=== PATIENT | female | born 1960 | race Caucasian/White ===

== ENCOUNTER 2024-08-04 00:49 | Day surgery (SDC) | payer OTHER, SELFPAY ==
[2024-08-01 14:14] VITALS: BMI 25.8
[2024-08-04] VITALS (19 sets, daily range): BP systolic 97–116; BP diastolic 52–80; PULSE 61–78; RESP 12–20; TEMP 37.1; O2SAT 93–100; BMI 26.2
[2024-08-04 09:06] LABS: Anion Gap 11 mmol/L (4-12); Blood Urea Nitrogen 11 mg/dL (7-17); Calcium 9.5 mg/dL (8.4-10.2); Carbon Dioxide 30 mmol/L (22-30); Chloride 101 mmol/L (98-107); Estimated CRCL calculation 62 ml/min; Estimated Glomerular Filt Rate > 60; Glucose 91 mg/dL (65-110); Potassium 3.8 mmol/L (3.4-5.0); Sodium 142 mmol/L (137-145)
[2024-08-04 09:29] LABS: Basophils Percent Auto 0.3 % (0.2-1.2); Eosinophils Absolute Auto 0.3 K/mm3 (0-0.3); Eosinophils Percent Auto 4.3 % (0-4.4); Hematocrit 41.5 % (37.0-47.0); Hemoglobin 13.5 g/dL (12.0-15.0); Immature Granulocyte Absolute 0.02 K/mm3 (0.00-0.031); Immature Granulocyte Percent A 0.3 % (0-0.5); Lymphocytes Percent Auto 33.5 % (18.3-44.2); Mean Corpuscular HGB Conc 32.5 g/dl (32-36); Mean Corpuscular Hemoglobin 31.8 pg (26-34); Mean Corpuscular Volume 97.6 fl (80-100); Mean Platelet Volume 9.2 fl (7.4-10.4); Monocytes Absolute Auto 0.8 K/mm3 (0.1-0.6); Monocytes Percent Auto 12.3 % (2.6-8.5); Neutrophils Absolute Auto 3.2 K/mm3 (1.3-6.7); Neutrophils Percent Auto 49.3 % (45.5-73.1); Platelet Count Result 250 k/mm3 (150-375); Red Blood Count 4.25 M/mm3 (4.2-5.4); White Blood Count 6.6 K/mm3 (4.5-10.0)
--- NOTE | 2024-08-04 11:26 | WPDHPUPDATE1 ---
History and Physical Update Update Date/Time: 08/04/24 10:06 History and Physical has been reviewed, including an updated exam of the patient. There are NO changes in the patient's condition. Risks, benefits, and alternatives have been discussed and questions answered. Patient agrees to proceed with procedure.
--- NOTE | 2024-08-04 11:27 | P.SEDATION_ITS ---
Moderate Sedation Note-Pt Data Patient Data Allergies Allergy/AdvReac Type Severity Reaction Status Date / Time cefuroxime Allergy Unknown Rash Verified 08/04/24 08:39 codeine Allergy Unknown Unknown Verified 08/04/24 08:39 naproxen Allergy Unknown Unknown Verified 08/04/24 08:39 sulfamethoxazole AdvReac Unknown Dizziness Verified 08/04/24 08:39 [From Sulfamethoxazole-Trimethoprim] Home Medications Medication Instructions Recorded Confirmed Type aspirin 81 mg tablet 81 mg PO DAILY 08/01/24 08/04/24 History atorvastatin 20 mg tablet 20 mg PO DAILY 08/01/24 08/04/24 History cetirizine 10 mg chewable tablet 10 mg PO DAILY 08/01/24 08/04/24 History gabapentin 300 mg capsule 300 mg PO BID 08/01/24 08/04/24 History lisinopril 10 1 tablet PO DAILY 08/01/24 08/04/24 History mg-hydrochlorothiazide 12.5 mg tablet magnesium oxide 200 mg PO DAILY 08/01/24 08/04/24 History [id number]-Td-jdav-minerals (One 1 tablet PO DAILY 08/01/24 08/04/24 History Daily Calcium/Iron tablet) Current Medications: Active Medications Sodium Chloride (Normal Saline Iv) 1,000 mls @ 125 mls/hr IV CONT .Q8H ONE Stop: 08/04/24 19:25 Sedation/Anesthesia: No previous sedation/anesthesia problems (including family history). [facility] Family History Family History (Updated 05/28/14 @ 07:13 by DOCTOR UNKNOWN) Father Family history of premature coronary heart disease Social History Social History Smoking status: Never smoker Second hand tobacco smoke exposure: No Alcohol intake: current Drinks per week: 1 Substance use: never Substance use type: does not use Living arrangements: alone Spiritual care concerns: No Mod Sed Physical Exam Physical Exam Pre Procedural Exam: Normal: Appearance and Heart Rate Hours since solid foods: 12 Hours since liquid intake: 12 Mallampati Classification: class II Internal Medicine - PN: Obj Da Vital Signs Vital Signs: Vital Signs - 24 hr 08/04/24 09:15 Temperature 37.1 C Pulse Rate 61 Respiratory Rate 18 Blood Pressure 105/80 Pulse Oximetry 99 Oxygen Delivery Room Air Meds/Results Medications: Active Medications Generic Name Dose Route Start Last Admin Trade Name Freq PRN Reason Stop Dose Admin Sodium Chloride 1,000 mls @ 125 mls/hr 08/04/24 11:26 Normal Saline Iv IV CONT 08/04/24 19:25 .Q8H ONE Labs 08/04/24 08:43 08/04/24 08:43 Labs: Laboratory Results - last 24 hr 08/04/24 08:43 WBC 6.6 RBC 4.25 Hgb 13.5 Hct 41.5 MCV 97.6 MCH 31.8 MCHC 32.5 RDW 13.0 Plt Count 250 MPV 9.2 Immature Gran % (Auto) 0.3 Neut % (Auto) 49.3 Lymph % (Auto) 33.5 [place] % (Auto) 12.3 H Eos % (Auto) 4.3 Baso % (Auto) 0.3 Lymph # (Auto) 2.20 [place] # (Auto) 0.8 H Eos # (Auto) 0.3 Baso # (Auto) 0.0 Abs Immat Gran (auto) 0.02 Absolute Neuts (auto) 3.2 Absolute Nucleated RBC 0.000 Nucleated RBC % 0.0 Sodium 142 Potassium 3.8 Chloride 101 Carbon Dioxide 30 Anion Gap 11 BUN 11 Creatinine 0.70 Estim Creat Clear Calc 62 Estimated GFR > 60 Glucose 91 Calcium 9.5 ASA Classification/Sedation ASA Classification/Sedation ASA Class: III Emergent: No Risks: Risks, benefits and alternatives explained and patient/family accepted plan for sedation. Patient re-evaluated immediately prior to sedation.
--- NOTE | 2024-08-04 11:27 | P.PCNCC_ITS ---
Cardiac Cath Procedure Note Date of procedure:: 08/04/24 Performing physician:: CATHETERIZATION LABORATORY REPORT Procedure Date: 08/04/2024 Referring Physician: Dr. Hill Anesthesia: Versed and Fentanyl were ordered and given in my presence at 1026, procedure ended at 1122. Supervision of nurse, Ralph Pereira monitored moderate sedation with 2mg Versed and 150mcg Fentanyl was provided for 56 minutes. Pre-op Diagnosis: CCS II Angina Post-op Diagnosis: CCS II Angina Procedure(s): Left heart catheterization with coronary angiography Access Site: Right radial artery Brief History and Clinical Indications: 63-year-old woman who has been developing exertional symptoms along with chest discomfort found to have at least moderate CAD in the LAD presents to define her coronary anatomy. All risks, benefits and alternatives to left heart catheterization with or without percutaneous coronary intervention was discussed at length with the patient. Risk of complications including but not limited to bleeding, infection, arrhythmia, stroke, worsening kidney function, blood loss, groin hematoma, limb loss, emergency coronary artery bypass grafting, and even were discussed with the patient and all questions were answered. The patient understood and wished to proceed. Time out called, patient name, date of , medical record number, allergies, procedure performed, identify Supply Chain Development Manager, patient and staff member concurred with accurate data, procedure carried on. Findings: LEFT HEART CATHETERIZATION FINDINGS: 1. Left main: The left main coronary artery is very short and widely patent without any significant obstructive disease. 2. Left anterior descending: The LAD gives also 5 diagonal branches. The 1st diagonal branch is a small-caliber vessel with no obstructive angiographic disease. The remaining diagonals are very small supply minimal territory. The LAD in its proximal to mid body has 20-30% calcific disease. 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 3. Left circumflex: The left circumflex artery has mild luminal irregularities without any significant obstructive angiographic disease. The left circumflex gives off 3 OM branches. OM1 in its mid body has a bifurcation lesion that is 70% stenotic. OM2 and OM3 have mild luminal irregularities without any significant obstructive angiographic disease. 4. Right coronary artery: The RCA has mild luminal irregularities without any significant obstructive angiographic disease. The RCA is the dominant vessel. 5. Left ventricle: A. End-diastolic pressure 35 mmHg. B. LV gram deferred. C. No significant gradient across aortic valve on catheter pullback. 6. Opening AO pressure 116/69 and closing AO pressure 130/79 Description of Procedure: Informed consent signed and placed in the chart. Patient transferred to cardiac catheterization technologist room. Prepped and draped in usual sterile fashion. 2% lidocaine injected subcutaneously in right wrist area. 22-gauge venipuncture catheter used to access the right radial artery with the Seldinger technique. 6-FR slender sheath placed in right radial artery. Nitroglycerin 200mcg, Verapamil 2.5mg, and Heparin 5000U was given intraarterial through the sheath. J wire advanced under fluoroscopy 5F TIG diagnostic catheter engaged Left Main Coronary Artery. 5F TIG diagnostic catheter engaged Right Coronary Artery Multiple orthogonal angiogram obtained and reviewed 5F pigtail diagnostic catheter crossed aortic valve to obtain LVEDP, LV angiogram deferred. At this time, the films were reviewed in its entirety and decision was made to further interrogate the OM1 bifurcation lesion. A CLS 3.0 guide catheter was used to intubate the short left main coronary artery. The 014 OmniWire took course of the LAD and was left in place. A 2nd 014 run-through hyper coat wire was traversed into OM1 branch. At this point the OmniWire was withdrawn into the left main coronary artery and redirected into the left circumflex. The pressure sensor was positioned in the left main coronary artery where the system was normalize. After normalization, the OmniWire was negotiated into larger OM1 branch. IFR was measured at 0.92 and the wire was slowly withdrawn and no drift was noted. Final angiography was performed and no immediate complications were noted. Hemostasis was achieved by application of TR band. Assessment: CCS Class II Angina CAD Post Operative Condition: Stable No significant blood loss Disposition: Home Plan: Medical therapy for her angina, CAD, and myocardial bridging. Should patient have physically limiting symptoms despite optimal medical therapy, can return to cardiac catheterization technologist for PCI of OM1 branch. Silvano Presley Interventional Cardiology
== END 2024-08-04 17:20 | disposition home or self-care (01) ==
PROVIDERS: PCP Internal Medicine; Visit Provider Internal Medicine
PROC: 4A023N7 Measurement of Cardiac Sampling and Pressure, Left Heart, Percutaneous Approach (ICD-10-PCS; CPT 93452; principal; 2024-08-04 10:00)
PROC: 4A033BC Measurement of Arterial Pressure, Coronary, Percutaneous Approach (ICD-10-PCS; CPT 93571; 2024-08-04 10:00)
DX: I25.119 Atherosclerotic heart disease of native coronary artery with unspecified angina pectoris (principal); Q24.5 Malformation of coronary vessels; R55 Syncope and collapse; I10 Essential (primary) hypertension; E78.5 Hyperlipidemia, unspecified; Z79.82 Long term (current) use of aspirin; Z87.891 Personal history of nicotine dependence; Z85.118 Personal history of other malignant neoplasm of bronchus and lung; Z80.9 Family history of malignant neoplasm, unspecified; Z82.49 Family history of ischemic heart disease and other diseases of the circulatory system
CPT/HCPCS: 36415; 80048; 85025; 93458; 93571; C1769; C1887; C1894; J1644; J2003; J2250; J2305; J3010; J7040

== ENCOUNTER 2025-04-08 00:47 | Day surgery (SDC) | payer OTHER, SELFPAY ==
[2025-04-07 13:21] VITALS: BMI 26.6
--- OUTSIDE RECORDS SUMMARY | 2025-04-08 00:50 | XMS_ITS | Clinical Summary ---
Author Organization [facility] Address [address] [place] [address] Care Team Providers Care Medical Clerk Name Role Phone Iwona Auguste MD Unavailable Kash Wiseman MD Unavailable Shonda Cuenca PhD Unavailable [phone] Bonnie Syed NP Unavailable Derrek Otto MD Unavailable Ron Toledo MD Primary Care Provider [phone] Allergies Active Allergy Reactions Criticality Noted Date Comments Cefuroxime Rash Medium 07/29/2021 Codeine Hives Medium 06/27/2018 Sulfamethoxazole-Trimethoprim Dizziness,Stomach upset Low 04/27/2020 Medications gabapentin (NEURONTIN) 300 mg capsule Take 1 capsule (300 mg total) by mouth 2 (two) times a day 10/08/2019 Active lisinopril-hydr oCHLOROthiazide (ZESTORETIC) 10-12.5 mg per tablet Take 1 tablet by mouth daily 05/04/2022 Active magnesium oxide 200 mg magnesium tablet,chewable 01/29/2023 Act abebe multivitamin-Ca -iron-minerals tablet 01/29/2023 Active cetirizine (ZyrTEC) 10 mg chewable tablet Take 1 tablet (10 mg total) by mouth daily Active aspirin 81 mg enteric coated tabletIndicatio ns:prevention of thrombosis Take 1 tablet (81 mg total) by mouth daily 06/24/2024 5 Active L. acidophilus/Bif id. animalis 32 billion cell capsule Take 1 capsule by mouth daily Active FIBER CHOICE, INULIN, ORAL Take 1 tablet by mouth daily Active rosuvastatin (CRESTOR) 20 mg tabletIndicatio ns:Hyperlipidem ia LDL goal <70,Coronary artery disease involving [place] coronary artery of [place] heart without angina pectoris Take 1 tablet (20 mg total) by mouth daily 90 tablet 3 09/02/2024 5 Active vitamin B complex capsule Take 1 capsule by mouth 2 (two) times a day Active Active Problems Patient Care Coordination No te Formatting of this note migh t be different from the original. 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 She initially presented with dizziness, an unsteady gait, and left leg numbness last June. She underwent a CT of the head on 06/27/18 that showed multiple brain lesions with the largest measuring 1.9 cm in the right cerebellar hemisphere. She had a CT of the chest, abdomen and pelvis that showed a 2 x 1.3 cm right upper lobe nodule with associated 0.6 cm satellite nodule, left lung nodules measuring up to 3 mm and multiple nodules in the left breast with the largest measuring 1 cm, with a negative follow up mammogram. She underwent a brain MRI on 06/27/18 that demonstrated a 2.3 x 2.3 cm lesion in the right cerebellar hemisphere and a 2.4 x 1.9 cm right parietal lesion. She underwent a resection of the cerebellar lesion on 06/28/18 and the pathology showed metastatic carcinoma. She underwent a biopsy of the right upper lobe lesion on 07/30/18 that demonstrated adenocarcinoma consistent with a lung primary. She had gamma knife to her other brain lesion on 07/31/18. She had a PET on 08/01/18 that showed increased uptake in the 2.3 x 1.7 cm right upper lobe nodule and a large ipsilateral pneumothorax. This was treated with a chest tube. She has completed 5 cycles of pembrolizumab. She underwent a restaging CT of the chest and abdomen on 11/25/18 that showed interval improvement of the right upper lobe nodule with no evidence of metastatic disease in the abdomen. The right upper lobe nodule now measures 1.4 x 1 cm, previously 1.5 x 2.2 cm. She is here for further surgical evaluation. Problem Noted Date Diagnosed Date Status post placement of implantable loop record er 03/16/2025 Overview (03/16/2025): Medtronic LINQ Loop Recorder. Dx; Recurrent Syncope. DOI 04/08/2025-Jose. Eldalink remote. Recurrent syncope 03/13/2025 Hypersomnolence 03/13/2025 Coronary artery disease invo lving [place] coronary artery of [place] heart without angina pectoris 06/24/2024 Atypical chest pain 06/24/2024 Nuclear sclerosis of both eyes 06/19/2024 Assessment & Plan (06/19/2024 3:13 PM CDT): Minimal changes noted, NVS. Monitor Dry eye syndrome of both eyes 06/19/2024 Assessment & Plan (06/19/2024 3:13 PM CDT): ATs PRN PVD (posterior vitreous detachment), left 2022 Assessment & Plan (06/19/2024 3:11 PM CDT): Stable, no retinal holes/tears/detachments. RTC STAT w any vision changes Assessment & Plan (06/21/2023 1:26 PM CDT): Educated on stable findings and symptoms which should typically improve with time. Reassuringly, no retinal holes/tears/detachments noted in either eye. Educated pt to call/RTC STAT with any new flashes, many floaters, or curtain over vision. Pt expressed understanding. Monitor. Presbyopia 06/21/2023 Assessment & Plan (06/19/2024 3:12 PM CDT): Monitor, update specs at next visit. Assessment & Plan (06/21/2023 1:27 PM CDT): Recommended updating specs for FT wear. Vision changes 05/17/2023 Assessment & Plan (05/17/2023 3:53 PM CDT): She was diagnosed with posterior vitreous detachment roughly 2 months ago, here for a 2nd opinion regarding these findings. Fortunately there is no evidence for retinal tear detachment retina today, nor is there any evidence for malignancy in the eye. Recommend evaluation with our Optometry service for continued care. She has a history of metastatic pulmonary adenocarcinoma diagnosed in 2018 with metastasis to the brain now status post resection of a cerebellar lesion along with immunotherapy and gamma knife radiation. She began noticing blurry vision along with new floaters in her left eye 2 months prior. She has also noticed a temporal crescent in her vision in the left eye in certain lighting conditions (usually in a dark room). She has also noticed aching near her left eye. Ok to use PFAT prn Altogether her eye exam today is reassuring with some mild nonspecific pigmentary changes. For now we discussed it would be okay to continue with annual eye exams. Constipation 03/30/2023 Syncope and collapse 05/26/2022 Primary hypertension 03/22/2022 History of lung cancer 07/05/2021 Vitamin D deficiency 01/24/2021 Primary Adenocarcinoma of right upper lobe of luanne ng 08/07/2018 Cancer Staging:Clinical stage from 06/17/2018:Stage IV(pM1c) - Signed by Octavia Milligan NP on 01/15/2019 Overview (12/10/2018): Stage IV with more than one brain met. Treated with resection and pembro. Now considered for resection. Brain metastases 07/16/2018 Assessment & Plan (08/03/2018 8:39 AM CDT): Dx Sept '18 on path from cerebellar lesion. Now follows with Dr. Boyd. CT-guided Bx RUL lung 07/30 with path adenoCA, likely pulmonary primary. PET with R parietal met and RUL nodule. S/p GK to R parietal met. - patient transferring care to Dr. Wiseman as she has likely lung adenocarcinoma primary Epigastric pressure 05/21/2018 Calculus of gallbladder 04/23/2018 Dyslipidemia 04/23/2018 Abdominal pain, RUQ 12/24/2017 Cervicalgia 12/08/2016 Actinic keratosis 08/24/2015 Hyperlipidemia LDL goal <70 08/24/2015 ADHD, adult residual type 08/23/2015 Depression 06/04/2014 Fatigue 06/04/2014 Optic cupping, bilateral Overview (06/19/2024): C/D ratio OU (0.4) Assessment & Plan (06/19/2024 3:12 PM CDT): Moderate and deep cup right eye (OD) and left eye (OS), with intraocular pressure (IOP) that is normotensive. OCT optic nerve (ON) at follow up, monitor Resolved Problems Problem Noted Date Diagnosed Date Resolved Date Malignant neoplasm of upper lobe of right lung (CMS/HCC) 12/18/2018 01/19/2022 Overview (12/18/2018): Added automatically from request for surgery [id number] Pneumothorax, post biopsy, right 08/02/2018 01/19/2022 Assessment & Plan (08/03/2018 11:45 AM CDT): No PTX on CXR and no air leak. Chest tube clamped and CXR ordered for 1PM. Dr. Rodríguez will follow up and if no recurrence of PTX he will d/c chest tube. 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 Minimal Sx. S/p chest tube placement 16 Fr in ED. - IP following - chest tube pulled 08/03, no recurrent PTX on repeat CXR Pneumothorax, post biopsy, right 08/02/2018 01/19/2022 Overview (05/06/2019): Overview: Last Assessment & Plan: No PTX on CXR and no air leak. Chest tube clamped and CXR ordered for 1PM. Dr. Rodríguez will follow up and if no recurrence of PTX he will d/c chest tube. Secondary malignant neoplasm of brain (CMS/HCC) 07/16/2018 01/19/2022 Overview (05/06/2019): Overview: Last Assessment & Plan: Dx Jun18 on path from cerebellar lesion. Now follows with Dr. Boyd. CT-guided Bx RUL lung 07/30 with path adenoCA, likely pulmonary primary. PET with R parietal met and RUL nodule. S/p GK to R parietal met. - patient transferring care to Dr. Wiseman as she has likely lung adenocarcinoma primary Metastatic neoplastic disease 07/05/2018 01/19/2022 Pain in shoulder 12/08/2016 08/02/2018 Encounters Date Type Department Care Team Description 04/07/2025 9:08 AM CDT Hospital Encounter [facility] ([facility] [address] [place] [id number] Abnormal mammogram of left breast 03/27/2025 Results Follow-Up [facility] [address] [place] [phone] Armando Hill MD Portable/Home Sleep Study 03/27/2025 Telephone [facility] [address] [place] [phone] Armando Hill MD 03/25/2025 4:00 PM CDT - 03/25/2025 11:59 PM CDT Hospital Encounter [facility] [address] [place] [address] Hypersomnolence Discharge Disposition: Discharge to home or self care 03/16/2025 Orders Only [facility] [address] [facility] [address] [place] [phone] Armando Hill MD Recurrent syncope (Primary Dx); Implantable loop recorder present 03/13/2025 11:18 AM CDT - 03/13/2025 11:59 PM CDT Hospital Encounter [facility] ([facility]) [address] [place] [phone] Screening mammogram, encounter for Discharge Disposition: Discharge to home or self care 03/13/2025 8:15 AM CDT Office Visit [facility] at [address] [place] [address] Armando Hill MD Recurrent syncope (Primary Dx); Coronary artery disease involving [place] coronary artery of [place] heart without angina pectoris; Hyperlipidemia LDL goal <70; Primary hypertension; Hypersomnolence; Nonrheumatic tricuspid valve regurgitation 03/13/2025 Telephone [facility] [address] [place] [address] Armando Hill MD from Last 3 Months Immunizations Immunization Administration Dates Next Due Influenza, Quadrivalent, Spl it, Preservative Free, Intramuscular 07/05/2021 Pfizer SARS-CoV-2 Monovalent Vaccination (12+ Yrs) PURPLE 11/29/2020 Tdap 12/20/2022 ZOSTER Recombinant 10/26/2023,01/19/2023 Surgical History Surgery Date Site/Laterality Comments CHOLECYSTECTOMY HYSTERECTOMY 10/01/1991 - 09/30/1992 BRAIN SURGERY 06/01/2018 - 06/30/2018 gross total resection of the right cerebellar tumor CHOLECYSTECTOMY LUNG BIOPSY Right COLONOSCOPY 2018 Medical History Medical History Date Comments Adenocarcinoma (HCC) Adenocarcinoma of unknown primary (HCC) Right lung Hypertension Syncope Hyperlipidemia Nuclear sclerotic cataract, bilateral PVD (posterior vitreous deta chment), left eye Follows with Dr. Diez Vitreous syneresis of right eye Optic cupping, bilateral C/D rat io OU (0.4) Macular pigment deposit OS: terrie nt areas of hypopigmentation temporal and inf macula, no lesion Hyperopia of right eye with astigmatism Presbyopia Family History Medical History Relation Name Comments Cancer Brother Bang Family history of malignant neoplasm - (Added by TW Conv) Heart disease Father Marcus Family history of cardiac disorder - (Added by TW Conv) Hypertension Father Marcus Kidney disease Father Marcus No Known Problems Mother Anesthesia problems Neg Hx Breast cancer Neg Hx Ovarian cancer Neg Hx Relation Name Status Comments Brother Bang Father Marcus Mother Sister Alive Social History Tobacco Use Types Packs/Day Years Used Date Smoking Tobacco: Former Cigarettes 1 37.2 0 05/01/1981 - 06/27/2018 Smokeless Tobacco: Never Tobacco Cessation:Counseling Given: Not Answered Alcohol Use Standard Drinks/Week Comments No 0 (1 standard drink = 0.6 oz pur e alcohol) AUDIT-C Answer Date Recorded Q1: How often do you have a drink containing alcohol? Never 08/02/2023 Q2: How many drinks containi ng alcohol do you have on a typical day when you are drinking? Patient does not drink Q3: How often do you have si x or more drinks on one occasion? Never 08/02/2023 Personal Safety Answer Date Recorded Have you ever been in or are you currently in a harmful physical or emotional relationship or is someone making you feel afraid or unsafe? 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 [employer] Not on file Not on file No t on file Obstetrics History Para Term AB IAB SAB Ectopic Multiple Livin g Live Births 3 2 2 Date Outcome GA Total Labor Labor/2nd/3rd Weight Sex Type Anes PTL Heena A1 A5 Name Clin Term Term Last Filed Vital Signs Vital Sign Reading Time Taken Comments Blood Pressure 128/88 03/13/2025 8:19 AM CDT Pulse 62 03/13/2025 8:19 AM CDT Temperature 36.4 C (97.5 F) 07/24/2024 10:11 AM CDT Respiratory Rate 16 07/24/2024 10:11 AM CDT Oxygen Saturation 98% 03/13/2025 8:19 AM CDT Inhaled Oxygen Concentration - - Weight 70.3 kg (155 lb) 03/13/2025 8:19 AM CDT Height 160 cm (5' 3) 03/13/2025 11:30 AM CDT Body Mass Index 27.46 03/13/2025 8:19 AM CDT Plan of Treatment Health Maintenance Due Date Last Done Comments Depression Screening 1960 Hepatitis B Screening 1979 Regular Well Visit/Exam 18-64 1979 Pneumococcal vaccine <65 (1 of 2 - PCV) 1980 Covid-19 Vaccine ( - 2023-2 5 season) 2024 07/05/2021, 12/19/2020, 11/29/2020 Influenza Vaccine (#1) 2025 07/05/2021 Breast Cancer Screening-Mammogram 03/13/2026 03/13/2025, 03/28/2024, 03/28/2024, Additional history exists DTaP/Tdap/Td Vaccine (2 - Td or Tdap) 12/20/2032 12/20/2022 Colon Cancer Screening-Colonoscopy 05/07/2033 05/07/2023, 08/12/2018 Hepatitis C Screening Completed 07/30/2018, 018 Colon Cancer Screening-CT Colonography Discontinued 05/07/2023, 08/12/2018 Colon Cancer Screening-DNA Stool Discontinued 05/07/20 23, 08/12/2018 Colon Cancer Screening-FIT Discontinued 05/07/2023, Colon Cancer Screening-Sigmoidoscopy Discontinued 05/07/2023, 08/12/2018 Zoster Vaccine Completed 10/26/2023, 01/19/2023 Medical Devices Implanted Type Area Trade Mark Attorney Device Identifier Shelf Expiration Date Model / Serial / Lot Vincent Craniomaxillofacial [id number] Duramatrix-Onlay Plus 2x2in Regeneration Membrane Patch Dural - [id number] Implanted:Qty: 1 on 06/28/2018 by Isrrael Cervantes MD PhD at [facility] N/A: Brain Vincent Craniomaxillofacial [id number] 09/30/2019 [id number] / / [id number] Vincent Craniomaxillofacial [id number] Gail Neuro Iii 47x29x.3mm Closed Outer Frame Temporal Plate - [id number] Implanted:Qty: 1 on 06/28/2018 by Isrrael Cervantes MD PhD at [facility] N/A: Cranial [place] Craniomaxillofacial [id number] / / [place] Craniomaxillofacial [id number] Gail Neuro 3 1.5mm 4mm Self Drill Axial Stability Screw Bone Latex Free - [id number] Implanted:Qty: 5 on 06/28/2018 by Isrrael Cervantes MD PhD at [facility] N/A: Cranial [place] Craniomaxillofacial [id number] / / Explanted Type Area Trade Mark Attorney Device Identifier Shelf Expiration Date Model / Serial / Lot Bone Flap Explanted:Qty: 1 on 06/28/2018 by Isrrael Cervantes MD PhD at [facility] Right: Head Other 06/28/2018 / 0 / 0 Description:Bone flap Procedures Procedure Name Priority Date/Time Associated Diagnosis Comments DIAGNOSTIC MAMMOGRAM LEFT W YAHIR Schedule Routine, Read Routine (OP Routine) 04/07/2025 10:16 AM CDT Abnormal mammogram of left breast PORTABLE/HOME SLEEP STUDY Routine 03/26/2025 12:23 PM CDT Hypersomnolence SCREENING MAMMOGRAM BILATERAL W YAHIR Schedule Routine, Read Routine (OP Routine) 03/13/2025 11:41 AM CDT Screening mammogram, encounter for POCT LIPID PANEL Routine 03/13/2025 8:14 AM CDT Hyperlipidemia LDL goal <70 COLONOSCOPY 05/07/2023 7:56 AM CDT HEPATITIS C ANTIBODY STAT 07/30/2018 1:30 PM CDT from Last 3 Months or Most Recently Relevant to Health Maintenance Results * Diagnostic Mammogram Left W Yahir (04/07/2025 10:16 AM CDT) Anatomical Region Laterality Modality Breast Left Mammography 04/07/2025 10:3 7 AM CDT Impressions 04/07/2025 11:07 AM CDT No mammographic evidence of malignancy within the left breast. OVERALL FINAL ASSESSMENT: BI-RADS Category 1: Negative. RECOMMENDATION: Annual screening mammography is recommended. Dr. Mccray discussed the above findings and recommendations with the patient. Dictated by: Dolly Mccray MD The radiology attending physician has personally reviewed this study, and had reviewed and/or edited this written report and agrees with it. Electronically signed by: Lacey Hansen M.D. Narrative 04/07/2025 11:07 AM CDT EXAMINATION: LEFT UNILATERAL DIGITAL DIAGNOSTIC MAMMOGRAM AND DIGITAL BREAST TOMOSYNTHESIS HISTORY: 64-year-old female presenting as a screening call back for calcifications within the left breast COMPARISON: 03/13/2025, 03/28/2024, 02/28/2024, 02/20/2023 TECHNIQUE: Full field digital mammographic views of the LEFT breast were performed, including computer aided detection (CAD) and digital breast tomosynthesis (DBT). BREAST PARENCHYMAL COMPOSITION: There are scattered areas of fibroglandular density. MAMMOGRAM FINDINGS: Previously queried calcifications within the LEFT upper outer breast are not well seen on today's examination performed and are favored to represent pseudo-calcifications on the screening mammogram. No suspicious mass, calcification or architectural distortion within the left breast. Ron Toledo MD IMG MAMMO PROCEDURES Final Res ult * Portable/Home Sleep Study (03/26/2025 12:23 PM CDT) Impressions Phylicia Pizarro MD - 03/26/2025 12:23 PM CDT Indication for study: Ms. Espinoza is a 64-year-old with chief complaint of snoring, unrefreshing sleep and daytime fatigue. The patient's [place] Sleepiness scale score is 6 Vital statistics: Age: 64 years BMI: 27.5 Procedure: Unless otherwise noted, respiratory events were scored in accordance with recommended parameters outlined in the AASM Manual for the Scoring of Sleep and Associated Events, Version 2.6 Hypopneas were scored in accordance with acceptable parameters as outline in Chapter IX, Part 1: HSAT utilizing Respiratory Flow and or Effort Parameters, Category H., Section 1b. This study was performed using a [employer] apnea Link portable monitoring unit, a type 3 portable monitoring device. Variable monitored included nasal/oral pressure transduced airflow( PTAF), single respiratory effort (thoracic belt), snoring (derived from PTAF sensor) and pulse oximetry. Description of polysomnography findings: Patient had 8 hours and 31 minutes of monitored time. 8 hour and 19 minutes flow evaluation was present. 8 hours and 21 minutes oxygen saturation analysis was present. The apnea-hypopnea index was 3.6. The AHI was 4.0 in the supine position, and 2.0 in the nonsupine position. There were 2 obstructive apneas and 20 hypopneas recorded. Baseline oxygen saturation was 98%. Lowest oxygen saturation was 89%. Average oxygen saturation was 95%. The oxygen desaturation index was 3.8. Pulse evaluation revealed maximum 79 beats per minute, minimum 44 beats per minute averaging 59 beats per minute Impression: 1. Apneas and hypopneas were present. Present study does not meet the criteria for obstructive sleep apnea syndrome. 2. Sleep hygiene should be reviewed to assess factors that may improve sleep quality. 3. Weight management and regular exercise should be initiated or continued 4. 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 A sleep EEG was not recorded; therefore, the actual amount of time spent in sleep, stages of sleep and respiratory events associated with arousals cannot be determined by this study. 2. All indexes are computed against monitoring time, not total sleep time. For this reason, the degree of severity may be underestimated 3. The severity of the sleep apnea may vary from night to night depending on body position during sleep, REM sleep and sleep efficiency. These factors should be taken into consideration. Narrative Phylicia Pizarro MD - 03/26/2025 12:23 PM CDT Ocst is ready for review Armando Hill MD SLEEP CENTER ORDERABLES F inal Result * (ABNORMAL) Screening Mammogram Bilateral W Yahir (03/13/2025 11:41 AM CDT) Anatomical Region Laterality Modality Breast Bilateral Mammography Addenda Addendum by Ebonie Johnson MD on 03/16/2025 1:21 PM CDT Upon further review of the imaging, there are calcifications in the upper outer LEFT breast. Impressions 03/16/2025 12:50 PM CDT Bilateral No evidence of malignancy in either breast. OVERALL BI-RADS FINAL ASSESSMENT: 1 - Negative RECOMMENDATION: Recommend bilateral annual screening mammography. Narrative 03/16/2025 12:50 PM CDT EXAMINATION: Screening Mammogram Bilateral W Yahir: 03/13/2025 COMPARISON: Relevant prior studies available at the time of interpretation were reviewed. TECHNIQUE: Mammography was performed with 2D and digital breast tomosynthesis (DBT) images. CAD was utilized. BREAST PARENCHYMAL COMPOSITION: There are scattered areas of fibroglandular density. FINDINGS: Bilateral There is no suspicious mass, calcification, or architectural distortion in either breast. us Self Screening Mammogram IMG MAMMO PROCEDURES Ed ited Result - Final * (ABNORMAL) POCT lipid panel (03/13/2025 8:14 AM CDT) Cholesterol, POC 133 <200 MG/DL HDL, POC 45 >=40 mg/dL Triglycerides, POC 183(A) <=149 mg/dL LDL Cholesterol POC 51 <=129 mg/dL Chol/HDL Ratio, POC 3.0 NONE Non-HDL Cholesterol, POC 88 NONE mg/dL Cholesterol Total, POC 133 30 - 199 mg/dL Capillary blood 03/13/2025 8 :14 AM CDT us Armando Hill MD POINT OF CARE TEST ORDERA BLES Final Result * COLONOSCOPY (05/07/2023 7:56 AM CDT) Anatomical Region Laterality Modality Other Narrative Procedure Note Debbi Granda MD - 05/07/2023 7:56 AM CDT [facility] Patient Name: Fawn Espinoza Procedure Date: 05/07/2023 7:56 AM Date of : 1960 Admit Type: Outpatient Age: 62 Gender: Female Attending MD: Vicky Beatty Room: [facility] ENDOSCOPY ROOM 8 Note Status: Finalized Procedure: Colonoscopy Indications: High risk colon cancer surveillance: Personalhistory of colonic polyps, Last colonoscopy: August 2018, Incidental - Abdominal pain, Incidental - Change in bowel habits Referring MD: Ron Toledo MD Providers: Debbi Granda M.D. Medicines: Monitored Anesthesia Care Complications: No immediate complications. Estimated Blood Loss: Estimated blood loss was minimal. Procedure: Pre-Anesthesia Assessment: - Prior to the procedure, a History and Physicalwas performed, and patient medications, allergies and sensitivities were reviewed. The patient'stolerance of previous anesthesia was reviewed. - Immediately prior to administration ofmedications, the patient was re-assessed for adequacy to receive sedatives. - The risks and benefits of the procedure and the sedation options and risks were discussed with the patient. All questions were answered and informed consent was obtained. The benefits, risks and alternatives of theprocedure and sedation were discussed and informed consentwas obtained. All questions were answered. Please referto the signed informed consent document in the medical record. The scope was passed under direct vision.The CF [id number] endoscope was introduced through the anus and advanced to the cecum, identified by appendiceal orifice and ileocecal valve. The colonoscopy was somewhat difficult due to multiple diverticula in the colon. The patient tolerated the procedure fairly well. The quality of the bowel preparation was evaluated using the BBPS (BostonBowel Preparation Scale) with scores of: Right Colon = 2 (minor amount of residual staining, small fragmentsof stool and/or opaque liquid, but mucosa seen well), Transverse Colon = 2 (minor amount of residual staining, small fragments of stool and/or opaque liquid, but mucosa seen well) and Left Colon = 3 (entire mucosa seen well with no residual staining, small fragments of stool or opaque liquid). Thetotal BBPS score equals 7. The bowel preparation used was GoLYTELY via split dose instruction. The quality of the bowel preparation was adequate. Findings: The perianal and digital rectal examinations were normal. Multiple small and large-mouthed diverticula were found in thesigmoid colon. There was narrowing of the colon in association with the diverticular opening. There was evidence of diverticular spasm. A 7 mm polyp was found in the transverse colon. The polyp wassessile. The polyp was removed with a cold snare. Resection and retrieval were complete. The exam was otherwise without abnormality. Impression: - Moderate diverticulosis in the sigmoid colon.There was narrowing of the colon in association with the diverticular opening. There was evidence of diverticular spasm. - One 7 mm polyp in the transverse colon, removedwith a cold snare. Resected and retrieved. - The examination was otherwise normal. Recommendation: - Discharge patient to home. - Await pathology results. - Repeat colonoscopy in 7 years for surveillance. - Return to my office as previously scheduled. - Consider increasing gabapentin dose for abdominal pain. - We performed biopsies during your proceduretoday. If you do not receive the result from my office in, please contact my office at [phone]. Attending Participation: I personally performed the entire procedure. Electronically signed by Debbi Granda MD Debbi Granda M.D. 05/07/2023 8:40:07 AM . Number of Addenda: 0 Note Initiated On: 05/07/2023 7:56 AM Recognized by the [place] [employer] for promoting quality in endoscopy Debbi Granda MD ENDOSCOPY PROCEDUR ES Final Result * Hepatitis C antibody (07/30/2018 1:30 PM CDT) Hep C Ab Nonreactive Nonreactive LORAINE BETHEA Comment: Interpretive Data Positive results should be confirmed by a molecular method. If positive, a second separately collected sample should be submitted for Hepatitis C Virus (HCV) RNA Detection and Quantitation by Real-Time Reverse Abrasive Band Winder-PCR (RT-PCR). Current interpretive data was last revised on 2016. Blood specimen (specimen) 07/30/2018 1:30 PM CDT 07/30/2018 3:22 PM CDT Narrative LORAINE MUSE - 07/31/2018 9:52 AM CDT us Notinfile Unknown LAB MICROBIOLOGY - GENERAL ORD ERABLES Edited Result - Final [facility] Department [place] [address] from Last 3 Months or Most Recently Relevant to Health Maintenance Insurance [employer] [facility] H[facility]PPO Address: [place] [address] [employer] [facility] H[facility]/PPO Address: [address] [place] [address] [facility] [employer] [facility] H[facility]/PPO Address: [place] [address] Advance Directives For more information, please contact: [phone] Documents on File Type Date Recorded Patient Head Greenskeeper Expl anation ADVANCE DIRECTIVE 08/08/2018 8:54 AM Power of Dry Heat Cabinet Attendant * Full Code (Latest Code Status on File) Date Activated Date Inactivated Comments 05/07/2023 7:16 AM 05/07/2023 1:06 PM * Full Code Date Activated Date Inactivated Comments 07/12/2022 7:43 AM 07/12/2022 1:30 PM * Full Code Date Activated Date Inactivated Comments 01/06/2019 8:49 PM 01/08/2019 6:28 PM * Full Code Date Activated Date Inactivated Comments 08/12/2018 2:37 PM 08/12/2018 6:23 PM * Full Code Date Activated Date Inactivated Comments 08/02/2018 1:44 AM 08/04/2018 11:26 AM Care Teams Medical Clerk Relationship Specialty Start Date End Date Ron Toledo MD [address] [place] [address] PCP - General Internal Medicine 02/28/24 Iwona Auguste MD [address] [place] [address] Radiation Oncologist Radiation Oncology 07/17/18 Kash Wiseman MD [address] [facility] [address] [place] [address] Referring Physician Medical Oncology 07/26/18 Shonda Cuenca, PhD [address] [facility] [address] [place] [address] Nurse Practitioner Radiation Oncology 07/06/21 Bonnie Syed NP [address] [facility] [address] [place] [address] Nurse Practitioner Neurosurgery 07/06/21 Derrek Otto MD [address] [facility] [address] [place] [address] Surgeon Neurosurgery 05/24/22
--- OUTSIDE RECORDS SUMMARY | 2025-04-08 00:51 | XMS_ITS | Encounter Summary ---
Author Organization [facility] Healthcare Address [address] [place] [address] Care Team Providers Care Leather Case Finisher Name Role Phone Iwona Auguste MD Unavailable Kash Wiseman MD Unavailable [phone] Shonda Cuenca PhD Unavailable [phone] Bonnie Syed NP Unavailable [phone] Derrek Otto MD Unavailable [phone] Ron Toledo MD Primary Care Provider [phone] Reason for Referral * Diagnostic Imaging (Routine) - Closed Specialty Diagnoses / Procedures Referred By Tomy garcía Referred To Contact Diagnoses Abnormal mammogram of left breast Procedures Diagnostic Mammogram Left W Ron Devi MD [address] [place] [address] Phone: tel: fax: [address] [phone] Referral ID Status Reason Start Date Expiration Date Visits Re quested Visits Authorized [id number] Closed 03/24/2025 04/23/2026 1 1 Reason for Visit * Diagnostic Imaging (Routine) - Closed Specialty Diagnoses / Procedures Referred By Tomy garcía Referred To Contact Diagnoses Abnormal mammogram of left breast Procedures Diagnostic Mammogram Left W Ron Devi MD [address] [place] [address] Phone: tel: fax: [address] [phone] Referral ID Status Reason Start Date Expiration Date Visits Re quested Visits Authorized [id number] Closed 03/24/2025 04/23/2026 1 1 Encounter Details Date Type Department Care Team (Latest Contact Info) Description 04/07/2025 9:08 AM CDT Hospital Encounter [facility] Advanced Medicine Breast Imaging 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 us Ron Toledo MD IMG MAMMO PROCEDURES Final Res ult documented in this encounter Visit Diagnoses Diagnosis Abnormal mammogram of left breast documented in this encounter Care Teams Leather Case Finisher Relationship Specialty Start Date End Date Ron Toledo MD [address] [place] [address] PCP - General Internal Medicine 02/28/24 Iwona Auguste MD [address] [facility] [address] [place] [address] Radiation Oncologist Radiation Oncology 07/17/18 Kash Wiseman MD [address] [place] [address] Referring Physician Medical Oncology 07/26/18 Shonda Cuenca, PhD [address] # LL [facility] [address] [place] [address] Nurse Practitioner Radiation Oncology 07/06/21 Bonnie Syed NP [address] # LL [facility] [address] [place] [address] Nurse Practitioner Neurosurgery 07/06/21 Derrek Otto MD [address] # LL [facility] [address] [place] [address] Surgeon Neurosurgery 05/24/22 documented as of this encounter
--- OUTSIDE RECORDS SUMMARY | 2025-04-08 00:51 | XMS_ITS | Encounter Summary ---
Author Organization [facility] Address [address] [place] [address] Care Team Providers Care Laser/Electro Optics Technician Name Role Phone Ron Toledo MD Primary Care Provider [phone] Augustin David MD Unavailable Encounter Details Date Type Department Care Team (Late st Contact Info) Description 10/08/2023 MyChart Message Enc [facility] Family & Internal Medicine [facility] [address] [place] [address] Ron Toledo MD [address] [place] [address] Lexapro Social History Tobacco Use Types Packs/Day Years Used Date Smoking Tobacco: Former Cigarettes 1 35 0 06/27/1983 - 06/27/2018 Passive Smoke Exposure: Never Smokeless Tobacco: Never Alcohol Use Standard Drinks/Week Comments No 0 (1 standard drink = 0.6 oz pur e alcohol) PHQ-2 Answer Date Recorded Patient Health Questionnaire-2 Score 1 12/20/2022 Comments No Sex and Gender Information Value Date Recorded Sex Assigned at Female 12/03/2024 7:29 AM TEMPORARY ADMINISTRATIVE ASSISTANT Legal Sex Female 10:38 PM CDT Gender Identity Not on file Sexual Orientation Not on file Occupation Industry Job Start Date Job End Date Not on file Not on file Not on file Not on file documented as of this encounter Plan of Treatment Upcoming Encounters Date Type Department Care Team (Late st Contact Info) Description 07/29/2025 7:00 AM CDT Office Visit [facility] Family & Internal Medicine - [address] [phone] oRn Toledo MD [address] [place] [address] documented as of this encounter Visit Diagnoses Not on filedocumented in this encounter Additional Health Concerns Assessment Noted Time PHQ-9 Depression Total Score: 1 01/05/20 22 8:03 AM CDT documented as of this encounter Care Teams Laser/Electro Optics Technician Relationship Specialty Start Date End Date Ron Toledo MD [address] [place] [address] PCP - General 08/23/15 Augustin David MD [facility]. [facility] [address] [place] [address] [employer] Commissioner CARDIOVASCULAR DISEASE 04/23/18 documented as of this encounter
--- OUTSIDE RECORDS SUMMARY | 2025-04-08 00:51 | XMS_ITS | Encounter Summary ---
Author Organization [facility] Healthcare Address [address] [place] [address] Care Team Providers Care Transfer Table Operator Name Role Phone Iwona Auguste MD Unavailable Kash Wiseman MD Unavailable [phone] Shonda Cuenca PhD Unavailable [phone] Bonnie Syed NP Unavailable [phone] Derrek Otto MD Unavailable [phone] Ron Toledo MD Primary Care Provider [phone] Encounter Details Date Type Department Care Team (Late st Contact Info) Description 03/27/2025 Results Follow-Up [facility] Medical Group Cardiology [address] [place] [address] Armando Hill MD [address] [facility] C, [address] [place] [address] Portable/Home Sleep Study Social History Tobacco Use Types Packs/Day Years [...] you are drinking? 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 Not on file No t on file documented as of this encounter Plan of Treatment Not on file documented as of this encounter Visit Diagnoses Not on filedocumented in this encounter Care Teams Transfer Table Operator Relationship Specialty Start Date End Date Ron Toledo MD [address] [place] [address] PCP - General Internal Medicine 02/28/24 Iwona Auguste MD [address] LL [address] [address] Radiation Oncologist Radiation Oncology 07/17/18 Kash Wiseman MD [address] # LL [address] [address] Referring Physician Medical Oncology 07/26/18 Shonda Cuenca, PhD [address] # LL [facility] [address] [place] [address] Nurse Practitioner Radiation Oncology 07/06/21 Bonnie Syed NP [address] # LL [facility] [address] [place] [address] Nurse Practitioner Neurosurgery 07/06/21 Derrek Otto MD [address] [facility] # [address] [place] [address] Surgeon Neurosurgery 05/24/22 documented as of this encounter
--- OUTSIDE RECORDS SUMMARY | 2025-04-08 00:51 | XMS_ITS | Clinical Summary ---
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
--- OUTSIDE RECORDS SUMMARY | 2025-04-08 00:51 | XMS_ITS | Clinical Summary ---
Author Organization [facility] Address [address] [place] [address] Care Team Providers Care Wire Repairer Name Role Phone Unavailable Primary Care Provider Unavailabl e Source Comments [facility],non-owned Affiliates and Associated Physician Practices is amultiple site organization consisting of ambulatory clinics and hospital sitesin [place], [place], [place] and [place]. This disclosure is being madepursuant to the Care Everywhere program and may not contain all information available regarding this patient. Last updated 18.[facility] [employer] Social History Tobacco Use Types Packs/Day Years Used Date Smoking Tobacco: Never Assessed Comments Unknown Sex and Gender Information Value Date Recorded Sex Assigned at Female 07/24/2022 8:39 AM CDT Legal Sex Female 10:29 AM CDT Gender Identity Female 07/24/2022 8:39 AM CDT Sexual Orientation Straight 07/24/2022 8: 39 AM CDT Plan of Treatment Health Maintenance Due Date Last Done Comments COLOGUARD (AGES 45-75) - COL ON CA SCREENING 1961 COLON MONITORING 1961 COLONOSCOPY - COLON CA SCREENING 1961 CT COLONOGRAPHY - COLON CA SCREENING 1961 Colorectal Cancer Screening 1961 FIT - COLON CA SCREENING 1961 FLEX SIG - COLON CA SCREENING 1961 LIPID TESTING 1961 MAMMOGRAM 1961 HIV SCREENING 1976 HEPATITIS C SCREENING 10/29/1979 DTAP/TDAP/TD VACCINES (1 - Tdap) 1980 PNEUMOCOCCAL VACCINE 50+ (1 of 1 - PCV) 2011 ZOSTER VACCINE (1 of 2) 2011 COVID-19 VACCINE (1 - 2023-2 5 season) 2024 DEPRESSION SCREENING 10/01/2024 INFLUENZA VACCINE (#1) 2025 Respiratory Syncytial Virus (RSV) Vaccine Pt: or over 60 yrs (1 - 1-dose 75+ series) 2036 HEPATITIS B VACCINE Aged Out No longe r eligible based on patient's age to complete this topic HIB VACCINE Aged Out No longer eligi ble based on patient's age to complete this topic HPV VACCINE Aged Out No longer eligi ble based on patient's age to complete this topic MENINGOCOCCAL (Group B) VACC INE SHARED DECISION-MAKING Aged Out No longer eligibl e based on patient's age to complete this topic MENINGOCOCCAL GROUPS A/C/Y/W VACCINE Aged Out No longer eligible b ased on patient's age to complete this topic Insurance
--- OUTSIDE RECORDS SUMMARY | 2025-04-08 00:51 | XMS_ITS | Encounter Summary ---
Author Organization [facility] Healthcare Address [address] [place] [address] Care Team Providers Care Medical Surgery Nurse Name Role Phone Ron Toledo MD Primary Care Provider [phone] [facility] Unavailable Unav ailable Iwona Auguste MD Unavailable Isrrael Cervantes MD PhD Unavailable Papa Boyd MD Unavailable Kash Wiseman MD Unavailable [phone] Shonda Cuenca PhD Unavailable [phone] Bonnie Syed NP Unavailable [phone] Derrek Otto MD Unavailable [phone] Ron Toledo MD Primary Care Provider [phone] Encounter Details Date Type Department Care Team (Late st Contact Info) Description 04/18/2021 Telephone [facility] Advanced Medicine Radiation Oncology [address] [facility] [place] [address] Ana Rosa Pressley MA Social History Tobacco Use Types Packs/Day Years Used Date Smoking Tobacco: Former Cigarettes Q uit: 06/27/2018 Smokeless Tobacco: Never Alcohol Use Standard Drinks/Week Comments No 0 (1 standard drink = 0.6 oz pur e alcohol) AUDIT-C Answer Date Recorded Q1: How often do you have a drink containing alc ohol? 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 Not on file Not on file documented as of this encounter Plan of Treatment Not on file documented as of this encounter Visit Diagnoses Not on filedocumented in this encounter Care Teams Medical Surgery Nurse Relationship Specialty Start Date End Date Ron Toledo MD PCP - General 04/25/17 02/27/24 Ron Toledo MD [address] [place] [address] PCP - General Internal Medicine 02/28/24 Oncology, [place] [id number] [place] [address] Referring Physician Oncology 07/03/18 1 Iwona Auguste MD [address] # LL [address] [address] Radiation Oncologist Radiation Oncology 07/17/18 Isrrael Cervantes MD PhD [address] # LL [facility] [address] [place] [address] Surgeon Neurosurgery 07/17/18 10/04/21 Papa Boyd MD [address] # LL [facility] [address] [place] [address] Medical Oncologist/Seeing Eye Dog Trainer Medical Oncology 07/26/18 07/05/21 Kash Wiseman MD [address] [place] [address] Referring Physician Medical Oncology 07/26/18 Shonda Cuenca, PhD [address] [facility] # LL [facility] [address] [place] [address] Nurse Practitioner Radiation Oncology 07/06/21 Bonnie Syed NP [address] [facility] # LL [facility] [address] [place] [address] Nurse Practitioner Neurosurgery 07/06/21 Derrek Otto MD [address] [facility] [address] [place] [address] Surgeon Neurosurgery 05/24/22 documented as of this encounter
--- OUTSIDE RECORDS SUMMARY | 2025-04-08 00:51 | XMS_ITS | Referral Summary ---
Author Organization [facility] Address [address] [place] [address] Care Team Providers Care Specialty Transformer Assembler Name Role Phone Iwona Auguste MD Unavailable Kash Wiseman MD Unavailable [phone] Shonda Cuenca PhD Unavailable [phone] Bonnie Syed NP Unavailable [phone] Derrek Otto MD Unavailable [phone] Ron Toledo MD Primary Care Provider Encounters Date Type Department Care Team Description 04/07/2025 9:08 AM CDT Hospital Encounter [facility] Breast Imaging [facility] ([facility]) [address] [place] [address] Abnormal mammogram of left breast 03/27/2025 Results Follow-Up [facility] [address] [place] [address] Armando Hill MD Portable/Home Sleep Study 03/27/2025 Telephone [facility] [address] [place] [phone] Armando Hill MD 03/25/2025 4:00 PM CDT - 03/25/2025 11:59 PM CDT Hospital Encounter [facility] [address] [place] [address] Hypersomnolence Discharge Disposition: Discharge to home or self care 03/16/2025 Orders Only [facility] [address] [facility], [place] [address] Armando Hill MD Recurrent syncope (Primary Dx); Implantable loop recorder present 03/13/2025 Telephone [facility] [address] [place] [phone] Armando Hill MD 03/13/2025 11:18 AM CDT - 03/13/2025 11:59 PM CDT Hospital Encounter [facility] Breast Imaging [facility] ([facility]) [address] [place] [phone] Screening mammogram, encounter for Discharge Disposition: Discharge to home or self care 03/13/2025 8:15 AM CDT Office Visit [facility] at [address] [place] [address] Armando Hill MD Recurrent syncope (Primary Dx); Coronary artery disease involving lovelock coronary artery of lovelock heart without angina pectoris; Hyperlipidemia LDL goal <70; Primary hypertension; Hypersomnolence; Nonrheumatic tricuspid valve regurgitation from Last 3 Months Allergies Active Allergy Reactions Criticality Noted Date [...] ia LDL goal <70,Coronary artery disease involving lovelock coronary artery of lovelock heart without angina pectoris Take 1 tablet [...] CT of the chest and abdomen on 2/25/19 that showed interval improvement of the right [...] LINQ Loop Recorder. Dx; Recurrent Syncope. DOI 04/08/2025-[facility]. Recurrent syncope 03/13/2025 Hypersomnolence 03/13/2025 Coronary artery disease invo lving lovelock coronary artery of lovelock heart without angina pectoris 06/24/2024 Atypical chest [...] 06/17/2018:Stage IV(pM1c) - Signed by Octavia Milligan HEALTH UNIT COORDINATOR on 01/15/2019 Overview (12/10/2018): Stage IV with [...] (12/18/2018): Added automatically from request for surgery [id number] Pneumothorax, post biopsy, right 08/02/2018 01/19/2022 Assessment & Plan (08/03/2018 11:45 AM CDT): No PTX on CXR and no air leak. Chest tube clamped and CXR ordered for 1PM. Dr. Rodríguez will follow up and if no recurrence of PTX he will d/c chest tube. Assessment & Plan (08/04/2018 7:29 AM FURNACE MASON): Suspect 2/2 CT-guided Bx on 07/30 given [...] (05/06/2019): Overview: Last Assessment & Plan: Dx Jun on path from cerebellar lesion. Now follows with Dr. Boyd. CT-guided Bx RUL lung 07/30 with path adenoCA, likely pulmonary primary. PET with R parietal met and RUL nodule. S/p GK to R parietal met. - patient transferring care to Dr. 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 [employer] Not on file Not on file No t on file Last Filed Vital Signs Vital Sign Reading [...] 03/13/2025 8:19 AM CDT Plan of Treatment Not on file Medical Devices Implanted Type Area Clinical Laboratory Aide Device Identifier Shelf Expiration Date Model / Serial / Lot Vincent Craniomaxillofacial [id number] Duramatrix-Onlay Plus 2x2in Regeneration Membrane Patch Dural - [id number] Implanted:Qty: 1 on 06/28/2018 by Isrrael Cervantes MD PhD at [facility] N/A: Brain Mcgrann Craniomaxillofacial [id number] 09/30/2019 [id number] / / [id number] Vincent Craniomaxillofacial [id number] [employer] Iii 47x29x.3mm Closed Outer Frame Temporal Plate - [id number] Implanted:Qty: 1 on 06/28/2018 by Isrrael Cervantes MD PhD at [facility] N/A: Cranial Vincent Craniomaxillofacial 53-0032 4 / / Vincent Craniomaxillofacial [id number] [employer] 3 1.5mm 4mm Self Drill Axial Stability Screw Bone Latex Free - [id number] Implanted:Qty: 5 on 06/28/2018 by Isrrael Cervantes MD PhD at [facility] N/A: Cranial Mcgrann Craniomaxillofacial [id number] 4 / / Explanted Type Area Clinical Laboratory Aide Device Identifier Shelf Expiration Date Model / Serial / Lot Bone Flap Explanted:Qty: 1 on 06/28/2018 by Isrrael Cervantes MD PhD at [facility] Right: Head Other 06/28/2018 / 0 / [...] unrefreshing sleep and daytime fatigue. The patient's [place] Sleepiness scale score is 6 Vital statistics: [...] 1b. This study was performed using a ubigrate apnea Link portable monitoring unit, a type [...] continued 4. Avoid alcohol sedatives and other MAINTENANCE HELPER UTILITY ENGINEER depression that may worsen sleep and disrupt [...] calcification, or architectural distortion in either breast. Self Screening Mammogram IMG MAMMO PROCEDURES Ed [...] Region Laterality Modality Other Narrative Procedure Note Dbebi Granda MD - 05/07/2023 7:56 AM CDT [facility] Patient Name: Fawn Espinoza Procedure Date: 05/07/2023 7:56 AM Date of : 1960 Admit Type: Outpatient Age: 62 Gender: Female Attending MD: Vicky Beatty Room: [facility] 8 Note Status: Finalized Procedure: [...] The scope was passed under direct vision.The [id number] endoscope was introduced through the anus [...] office in, please contact my office at [phone]. Attending Participation: I personally performed the entire procedure. Electronically signed by Debbi Granda MD Debbi Granda M.D. 05/07/2023 8:40:07 AM . Number of Addenda: 0 Note Initiated On: 05/07/2023 7:56 AM Recognized by the [employer] for promoting quality in endoscopy us Debbi Granda MD ENDOSCOPY PROCEDUR ES Final Result * Hepatitis C antibody (07/30/2018 1:30 PM CDT) Hep C Ab Nonreactive Nonreactive LORAINE MUSE Comment: Interpretive Data Positive results should be confirmed by a molecular method. If positive, a second separately collected sample should be submitted for Hepatitis C Virus (HCV) RNA Detection and Quantitation by Real-Time Reverse Gastroenterology Nurse-PCR (RT-PCR). Current interpretive data was last revised on 2016. Blood specimen (specimen) 07/30/2018 1:30 PM CDT 07/30/2018 3:22 PM CDT Velvet BETHEA - 07/31/2018 9:52 AM CDT us Notinfile Unknown LAB MICROBIOLOGY - GENERAL ORD ERABLES Edited Result - Final [facility] Department [place] [address] from Last 3 Months or Most Recently Relevant to Health Maintenance Insurance [id number] CHOICE PLUS CHOICE PLUS [facility] CHOICE PLUS Advance Directives For more information, please contact: [phone] Documents on File Type Date Recorded Patient Gas Turbine Assembler Expl anation ADVANCE DIRECTIVE 08/08/2018 8:54 AM Power of Banquet Lead * Full Code (Latest Code Status on [...] 1:44 AM 08/04/2018 11:26 AM Care Teams Specialty Transformer Assembler Relationship Specialty Start Date End Date Ron Toledo MD [address] [place] [address] PCP - General Internal Medicine 02/28/24 Iwona Auguste MD [address] [facility] [address] [place] [address] Radiation Oncologist Radiation Oncology 07/17/18 Kash Wiseman MD [address] [facility] [address] [place] [address] Referring Physician Medical Oncology 07/26/18 Shonda Cuenca, PhD [address] [facility] [address] [place] [address] Nurse Practitioner Radiation Oncology 07/06/21 Bonnie Syed NP [address] [facility] [address] [place] [address] Nurse Practitioner Neurosurgery 07/06/21 Derrek Otto MD [address] [facility] [address] [place] [address] Surgeon Neurosurgery 05/24/22
--- OUTSIDE RECORDS SUMMARY | 2025-04-08 00:51 | XMS_ITS ---
Author Organization [facility] Address [address] [place] [address] Care Team Providers Care Whistle Punk Name Role Phone Iwona Auguste MD Unavailable Kash Wiseman MD Unavailable [phone] Shonda Cuenca PhD Unavailable [phone] Bonnie Syed NP Unavailable [phone] Derrek Otto MD Unavailable [phone] Ron Toledo MD Primary Care Provider [phone] Active Problems Patient Care Coordination No te [...] implantable loop record er 03/16/2025 Overview (03/16/2025): [employer] LINQ Loop Recorder. Dx; Recurrent Syncope. DOI 04/08/2025-[facility]. Recurrent syncope 03/13/2025 Hypersomnolence 03/13/2025 Coronary artery disease invo lving nulato coronary artery of nulato heart without angina pectoris 06/24/2024 Atypical chest [...] optic nerve (ON) at follow up, monitor Current Treatment and Therapy Plans No current plan information found. Past Treatment and Therapy Plans Oncology Chemotherapy Treatment Plan Name Start Date Discontinue Date Treatment Medications Discontinue Reason Plan Provider Cycles Pembrolizumab 21 Day Cycles 8 07/09/2019 pembrolizumab (KEYTRUDA)pembr olizumab (KEYTRUDA) IVPB in 100 mL Therapy Complete Alyssa rn, MD Kash 6 of 24 cycles started Radiation Treatments * Course C1 07/31/2018 - 07/31/2018 Treatment Period Energy Fraction Dose Fractions Total Dose Plans Planned B:Tum2_Rt_Cer 07/31/2018 - 07/31/2018 1,700 Reference Points Delivered B:Tum2_Rt_Cerebe 07/31/2018 - 07/31/2018 1,700 Lifetime Dose Tracking * Chemical Lifetime Dose Automatic Entry Manual Entr y DLP 15,576 mGycm 15,576 mGycm 0 mGycm Resolved Problems Problem Noted Date Diagnosed Date Resolved Date Malignant neoplasm of upper lobe of right lung (CMS/HCC) 12/18/2018 01/19/2022 Overview (12/18/2018): Added automatically from request for surgery [id number] Pneumothorax, post biopsy, right 08/02/2018 01/19/2022 Assessment & Plan (08/03/2018 11:45 AM CDT): No PTX on CXR and no air leak. Chest tube clamped and CXR ordered for 1PM. Dr. Rodríguez will follow up and if no recurrence of PTX he will d/c chest tube. Assessment & Plan (08/04/2018 7:29 AM HUMAN RESOURCES TECHNICIAN): Suspect 2/2 CT-guided Bx on 07/30 given [...] (05/06/2019): Overview: Last Assessment & Plan: Dx Sept '18 on path from cerebellar [...]
--- OUTSIDE RECORDS SUMMARY | 2025-04-08 00:51 | XMS_ITS | Encounter Summary ---
Author Organization [facility] Address [address] [place] [address] Care Team Providers Care Control Systems Technician Name Role Phone Unavailable Primary Care Provider Unavailabl e Encounter Details Date Type Department Care Team (Late st Contact Info) Description 06/19/2002 Outpatient Historical HIS MRI DEPT Reg Ho MD [address] [facility]. [facility] [address] [place] [phone] NONTOX UNINODULAR GOITER (Primary Dx) Social History Tobacco Use Types Packs/Day Years Used Date Smoking Tobacco: Never Assessed Comments Unknown Sex and Gender Information Value Date Recorded Sex Assigned at Not on file Legal Sex Female 3:13 AM CLINICAL RESOURCE MANAGER Gender Identity Not on file Sexual Orientation Not on file documented as of this encounter Plan of Treatment Not on file documented as of this encounter Visit Diagnoses Diagnosis Nontoxic uninodular goiter- Primary documented in this encounter
--- OUTSIDE RECORDS SUMMARY | 2025-04-08 00:51 | XMS_ITS | Encounter Summary ---
Author Organization [facility] Address [address] [place] [address] Care Team Providers Care Brazing Furnace Feeder Name Role Phone Ron Toledo MD Primary Care Provider [phone] Oncology, [facility] Unavailable Unav ailable Iwona Auguste MD Unavailable Isrrael Cervantes MD PhD Unavailable [phone] Papa Boyd MD Unavailable Kash Wiseman MD Unavailable [phone] Shonda Cuenca PhD Unavailable [phone] Bonnie Syed NP Unavailable [phone] Derrek Otto MD Unavailable [phone] Ron Toledo MD Primary Care Provider [phone] Encounter Details Date Type Department Care Team (Late st Contact Info) Description 08/05/2020 Telephone [facility] Radiation Oncology [address] [facility] [place] [address] Ana Rosa Pressley MA Social History Tobacco Use Types Packs/Day Years Used Date Smoking Tobacco: Former Cigarettes Q uit: 06/27/2018 Smokeless Tobacco: Never Alcohol Use Standard Drinks/Week Comments No 0 (1 standard drink = 0.6 oz pur e alcohol) Comments No Sex and Gender Information Value Date Recorded Sex Assigned at Not on file Legal Sex Female 1:15 AM SIGNAL MAINTAINER Gender Identity Not on file Sexual Orientation Not on file 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 Not on file Not on file Not on file documented as of this encounter Plan of Treatment Not on file documented as of this encounter Visit Diagnoses Not on filedocumented in this encounter Care Teams Brazing Furnace Feeder Relationship Specialty Start Date End Date Ron Toledo MD PCP - General 04/25/17 02/27/24 Ron Toledo MD [address] [place] [address] PCP - General Internal Medicine 02/28/24 [facility] [address] [place] [address] Referring Physician Oncology 07/03/18 1 Iwona Auguste MD [address] [place] [address] Radiation Oncologist Radiation Oncology 07/17/18 Isrrael Cervantes MD PhD [address] [place] [address] Surgeon Neurosurgery 07/17/18 10/04/21 Papa Boyd MD [address] [place] [address] Medical Oncologist/Watch Band Assembler Medical Oncology 07/26/18 07/05/21 Kash Wiseman MD [address] [place] [address] Referring Physician Medical Oncology 07/26/18 Shonda Cuenca, PhD [address] [facility] [address] [place] [address] Nurse Practitioner Radiation Oncology 07/06/21 Bonnie Syed NP [address] [facility] [address] [place] [address] Nurse Practitioner Neurosurgery 07/06/21 Derrek Otto MD [address] [facility] [address] [address] [place] [address] Surgeon Neurosurgery 05/24/22 documented as of this encounter
--- OUTSIDE RECORDS SUMMARY | 2025-04-08 00:51 | XMS_ITS | Encounter Summary ---
Author Organization [facility] Address [facility] [place] [address] Care Team Providers Care Doughnut Dough Mixer Name Role Phone Unavailable Primary Care Provider Unavailabl e Encounter Details Date Type Department Care Team (Late st Contact Info) Description 03/28/2019 Lab Requisition [facility] Care [facility] Lab [address] [facility] [place] [address] Ila Hinton DO [address] [facility] 3 [place]PT [place] [address] Social History Tobacco Use Types Packs/Day Years Used Date Smoking Tobacco: Never Assessed Comments Unknown Sex and Gender Information Value Date Recorded Sex Assigned at Female 07/24/2022 8:39 AM CDT Legal Sex Female 10:29 AM CDT Gender Identity Female 07/24/2022 8:39 AM CDT Sexual Orientation Straight 07/24/2022 8: 39 AM CDT documented as of this encounter Plan of Treatment Not on file documented as of this encounter Procedures Procedure Name Priority Date/Time Associated Diagnosis Comments DERMATOPATHOLOGY Routine 03/27/2019 12:0 0 AM CDT documented in this encounter Results * DERMATOPATHOLOGY (03/27/2019 12:00 AM CDT) Case Report Dermatopathology Report Case: [id number] Authorizing Provider: Ila Hinton DO Collected: 03/27/2019 12:00 AM Pathologist: Anusha Pérez MD Received: 03/28/2019 12:02 PM Specimens: A) - Skin, left FA B) - Skin, left back 12:51 PM CDT DERMATOPATHOLOGY LABORATORY Final Diagnosis Specimen A. SKIN, left FA: SEBORRHEIC KERATOSIS, MACULAR (L82.1) NON-INFLAMMATORY PURPURA (D69.2) (see microscopic description and comment) Specimen B. SKIN, left back: INTRADERMAL MELANOCYTIC NEVUS (D22.5) 12:51 PM CDT DERMATOPATHOLOGY LABORATORY at 1251 CDT Clinical History A: Purpura vs MM vs angioma. B: R/O nevus. 12:51 PM CDT DERMATOPATHOLOGY LABORATORY Gross Description Specimen A: Received is one formalin filled container labeled with the patient's name and designated left FA. The specimen consists of a shave measuring [id number]. Jar 0. Specimen B: Received is one formalin filled container labeled with the patient's name and designated left back. The specimen consists of a shave measuring [id number], bisected. Jar 0. 12:51 PM CDT DERMATOPATHOLOGY LABORATORY Microscopic Description Specimen A. SKIN, left FA: Sections show a relatively broad, flat proliferation of small keratinocytes. The surface is gently papillated, and there is increased basilar pigmentation. Sections show extravasation of red blood cells into the dermis from small cutaneous vessels. No associated inflammation is present in the vessel macias. COMMENT: These histological findings are consistent with a non-inflammatory purpura, which include idiopathic thrombocytopenic purpura, senile purpura, psychogenic purpura, traumatic purpura, and drug purpuras. Specimen B. SKIN, left back: There are nests of cytologically bland melanocytes within the dermis that mature with depth. 12:51 PM CDT DERMATOPATHOLOGY LABORATORY Disclaimer An external and internal positive and negative controls are appropriate for the histochemical, immunohistochemical and immunofluorescence stain(s) in this case (if any), except where stated explicitly. The performance characteristics of the stain(s) cited in this report were developed and its performance characteristic determined by the Dermatopathology Laboratory at [facility], directed by Dr. Hanna Brennan. These tests need not be, and therefore are not, approved by the [place] Food and Drug Administration. The tests are used for clinical purposes. Billing Codes Specimen Charges Stain Charges 15394 11016 1 1 9 12:51 PM CDT DERMATOPATHOLOGY LABORATORY Embedded Images 9 12:51 PM CDT DERMATOPATHOLOGY LABORATORY Pathology/Cytology TISSUE SPECIMEN FROM SKIN / Unknown 03/27/2019 03/28/2019 12:02 PM CDT Miscellaneous samples (specimen) TISSUE SPECIMEN FROM SKIN / Unknown 03/27/2019 03/28/2019 12:02 PM CDT us Ila Hinton DO LAB - PATHOLOGY/CYTOLOGY ORDERABLES Final Result Performing Organization Address City/State/[facility] Co de Phone Number DERMATOPATHOLOGY LABORATORY [facility] - Department of Dermatology [address] [place] [address] 5th Floor Lab [address] [phone] documented in this encounter Visit Diagnoses Not on filedocumented in this encounter
--- OUTSIDE RECORDS SUMMARY | 2025-04-08 00:51 | XMS_ITS | Clinical Summary ---
Author Organization [facility] Care Team Providers Care Medical Reception Name Role Phone Unavailable Primary Care Provider Unavailabl e Social History Tobacco Use Types Packs/Day Years Used Date Smoking Tobacco: Never Assessed Comments Unknown Sex and Gender Information Value Date Recorded Sex Assigned at Not on file Legal Sex Female 11:34 AM PATIENT SERVICE REP Gender Identity Not on file Sexual Orientation Not on file Plan of Treatment Health Maintenance Due Date Last Done Comments Hepatitis C Virus (HCV) Screening 1960 TdaP Immunization 1960 Pap Smear 1982 Cervical Cancer Screening (CCS) 1991 HPV/Cotest 1991 Colonoscopy 2006 Colorectal Cancer Screening 2006 Cologuard 2011 Immunochemical Fecal Occult Blood 2011 Mammogram 2011 Pneumococcal Immunization (5 0+ years) (1 of 1 - PCV) 2011 Zoster Immunization (1 of 2) 2011 Influenza Immunization (#1) 2024 07/05/2021 SARS-COV-2 Immunization ( season) 2024 07/05/2021, 12/19/2020, 11/28/2020 Respiratory Syncytial Virus (RSV) Immunization (Adult) (1 - 1-dose 75+ series) 2036 Hepatitis B Immunization Aged Out No longer eligible based on patient's age to complete this topic Meningococcal Immunization (ACWY) Aged Out No longer eligible b ased on patient's age to complete this topic Pneumococcal Immunization Combined Aged Out No longer eligible b ased on patient's age to complete this topic Rotavirus Immunization Aged Out No lo nger eligible based on patient's age to complete this topic
--- OUTSIDE RECORDS SUMMARY | 2025-04-08 00:51 | XMS_ITS | Clinical Summary ---
Author Organization [facility] Address [address] [place] [address] Care Team Providers Care Scrap Hooker Name Role Phone Ron Toledo MD Primary Care Provider [phone] Augustin David MD Unavailable Allergies Active Allergy Reactions Criticality Noted Date Comments Cefuroxime Rash Low 07/29/2021 Codeine Throat swelling 03/10/2016 Sulfamethoxazole-Trimethoprim Dizziness,GI Upset Low 04/27/2020 Medications Multiple Vitamin (MULTIVITAMIN ADULT OR) Take 2 tablets by mouth daily. Active aspirin EC (ECOTRIN) 81 MG tablet Take 1 tablet (81 mg total) by mouth daily. 06/24/20 24 025 Active probiotic (FLORAJEN3) Cap capsule Take 1 capsule by mouth daily with breakfast. Active Inulin (FIBER CHOICE OR) Take 1 tablet by mouth daily. Active cetirizine (ZYRTEC) 10 MG chewable tablet Chew 1 tablet (10 mg total) by mouth daily. Active rosuvastatin (CRESTOR) 20 MG tablet Take 1 tablet (20 mg total) by mouth daily. Active gabapentin (NEURONTIN) 300 MG capsuleIndicatio ns:Abdominal pain, RUQ Take 1 capsule by mouth twice daily 60 capsule 4 02/04/20 25 Active lisinopril-hydro CHLOROthiazide (ZESTORETIC) 10-12.5 MG tabletIndication s:Primary hypertension Take 1 tablet by mouth once daily 30 tablet 2 03/31/20 25 Active lisinopril-hydro CHLOROthiazide (ZESTORETIC) 10-12.5 MG tabletIndication s:Primary hypertension Take 1 tablet by mouth once daily 90 tablet 1 09/19/20 24 025 Discontinued Active Problems Problem Noted Date Diagnosed Date PVD (posterior vitreous detachment), left 2022 Overview (01/02/2024): Last Assessment & Plan: Educated on stable findings and symptoms which should typically improve with time. Reassuringly, no retinal holes/tears/detachments noted in either eye. Educated pt to call/RTC STAT with any new flashes, many floaters, or curtain over vision. Pt expressed understanding. Monitor. Primary hypertension 03/22/2022 History of lung cancer 07/05/2021 Vitamin D deficiency 01/24/2021 Hyperlipidemia 08/24/2015 ADHD, adult residual type 08/23/2015 Depression 06/04/2014 Resolved Problems Problem Noted Date Diagnosed Date Resolved Date Primary cancer of right uppe r lobe of lung ([facility]) 08/07/2018 07/05/2021 Pneumothorax, post biopsy, right 08/02/2018 07/05/2021 Overview (08/14/2018): Last Assessment & Plan: No PTX on CXR and no air leak. Chest tube clamped and CXR ordered for 1PM. Dr. Rodríguez will follow up and if no recurrence of PTX he will d/c chest tube. Secondary malignant neoplasm of brain ([facility]) 07/16/2018 07/05/2021 Overview (08/14/2018): Last Assessment & Plan: Dx Sept '18 on path from cerebellar lesion. Now follows with Dr. Boyd. CT-guided Bx RUL lung 07/30 with path adenoCA, likely pulmonary primary. PET with R parietal met and RUL nodule. S/p GK to R parietal met. - patient transferring care to Dr. Wiseman as she has likely lung adenocarcinoma primary Metastatic neoplastic diseas e ([facility]) 07/05/2018 07/05/2021 Epigastric pressure 05/21/2018 07/05/20 Abdominal pain, RUQ 12/24/2017 01/20/20 21 Fatigue 06/04/2014 07/05/2021 Chest pain 03/22/2022 Encounters Date Type Department Care Team Description 03/24/2025 Telephone [facility] [address] [address] Ron Toledo MD Orders 03/13/2025 Scan Commun.it INFO SRVCS Scanned, Doc [facility] Mammogram (SCAN) 01/21/2025 7:00 AM CDT Office Visit [address] [address] Ron Toledo MD Follow Up; Attention Deficit Hyperactivity Disorder; Depression; Hyperlipidemia; Vitamin D Deficiency; Hypertension 01/21/2025 Travel 01/16/2025 Results Follow-Up [address] [address] Ron Toledo MD URINALYSIS, CK (CPK), COMPREHENSIVE METABOLIC PANEL, Additional followed-up results: 3 01/14/2025 7:20 AM CDT Laboratory Only [address] [address] Ron Toledo MD 01/14/2025 - 01/14/2025 11:59 PM CDT Hospital Encounter [facility] [address] [place] [address] Ron Toledo MD Discharge Disposition: Home or Self Care (Routine Discharge) 01/14/2025 Travel from Last 3 Months Immunizations Immunization Administration Dates Next Due Fluzone 6 Months+ Quad (0.5 mL Prefilled Syringe) 07/05/2021 PFIZER COVID-19 (ORIGINAL FO RMULATION, PURPLE CAP) mRNA, LNP-S, PF, 30 MCG/0.3 ML DOSE 07/05/2021,12/19/2020,11/28/2020 Shingrix 10/26/2023,01/19/2023 Tdap (Adacel) 12/20/2022 Family History Medical History Relation Comments Cancer Brother LUKEMIA Heart Disease Father Hyperlipidemia Father Relation Status Comments Brother (Age 63) Father (Age 55) Mother Alive Sister Alive Social History Tobacco Use Types Packs/Day Years Used Date Smoking Tobacco: Former Cigarettes 1 35 0 06/27/1983 - 06/27/2018 Passive Smoke Exposure: Past Smokeless Tobacco: Never Tobacco Cessation:Counseling Given: Yes Alcohol Use Standard Drinks/Week Comments No 0 (1 standard drink = 0.6 oz pur e alcohol) PHQ-2 Answer Date Recorded Patient Health Questionnaire-2 Score 0 01/21/2025 Comments No Sex and Gender Information Value Date Recorded Sex Assigned at Female 12/03/2024 7:29 AM VALUE 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 COORDINATOR Legal Sex Female 10:38 PM CDT Gender Identity Not on file Sexual Orientation Not on file Occupation Industry Job Start Date Job End Date Not on file Not on file Not on file Not on file Last Filed Vital Signs Vital Sign Reading Time Taken Comments Blood Pressure 102/76 01/21/2025 7:11 AM CDT Pulse 71 01/21/2025 7:11 AM CDT Temperature 36.8 C (98.2 F) 01/21/2025 7:11 AM CDT Respiratory Rate 12 01/21/2025 7:11 AM CDT Oxygen Saturation 97% 01/21/2025 7:11 AM CDT Inhaled Oxygen Concentration - - Weight 69.2 kg (152 lb 8 oz) 01/21/2025 7:11 AM CDT Height 162.6 cm (5' 4) 01/21/2025 7:11 AM CDT Body Mass Index 26.18 01/21/2025 7:11 AM CDT Plan of Treatment Upcoming Encounters Date Type Department Care Team (Late st Contact Info) Description 07/29/2025 7:00 AM CDT Office Visit [facility] Family & Internal Medicine - [address] [phone] Ron Toledo MD [address] [place] [address] [phone] Health Maintenance Due Date Last Done Comments Annual Physical 1963 COVID-19 Vaccine (5 - 2024-25 season) 2025 10/03/2022, 07/05/2021, 12/19/2020, Additional history exists Postponed from 06/01/2024 (Patient Refused) Pneumococcal Vaccine: 50+ Years (1 of 1 - PCV) 07/23/2025 Postponed from 2011 (Going to Outside Clinic) Mammogram Screening 03/13/2027 03/13/2025, 03/13/2025, 03/28/2024, Additional history exists DTaP, Tdap and Td Vaccines (2 - Td or Tdap) 12/20/2032 12/20/2022 Colorectal Cancer Screening Colonoscopy (10 Years) 05/07/2033 05/07/2023, 05/07/2023, 08/12/2018 RSV Immunization or 60+ Years (1 - 1-dose 75+ series) 2036 Zoster Vaccines Completed 10/26/2023, 01/19/2023 Hepatitis C Completed 01/02/2024 PHQ-2 (Physician [place]) Completed 01/21/2025 Meningococcal B Vaccine Aged Out No l onger eligible based on patient's age to complete this topic Meningococcal Vaccine Aged Out No silas nelli eligible based on patient's age to complete this topic RSV Immunizations Under 20 Months Aged Out No longer eligible based on patient's age to complete this topic Procedures Procedure Name Priority Date/Time Associated Diagnosis Comments MAMMOGRAM GENERIC (SCAN ORDER) 03/13/2025 COLLECTION VENOUS BLOOD VENIPUNCTURE Routine 01/14/2025 7:24 AM CDT Primary hypertension Mixed hyperlipidemia Vitamin D deficiency CBC W/DIFF AUTOMATED Routine 01/14/2025 7:19 AM CDT Primary hypertension Mixed hyperlipidemia LIPID PANEL Routine 01/14/2025 7:19 AM CDT Primary hypertension Mixed hyperlipidemia VITAMIN D, 25 OH Routine 01/14/2025 7:19 AM CDT Primary hypertension Mixed hyperlipidemia Vitamin D deficiency COMPREHENSIVE METABOLIC PANEL Routine 01/14/2025 7:19 AM CDT Primary hypertension Mixed hyperlipidemia CK (CPK) Routine 01/14/2025 7:19 AM CDT Primary hypertension Mixed hyperlipidemia URINALYSIS, AUTO, COMPLETE Routine 01/14/2025 7:19 AM CDT Primary hypertension Mixed hyperlipidemia HEPATITIS C ANTIBODY Routine 01/02/2024 7:54 AM CDT Need for hepatitis C screening test COLONOSCOPY GENERIC (SCAN ORDER) 05/07/2023 from Last 3 Months or Most Recently Relevant to Health Maintenance Results * MAMMOGRAM GENERIC (SCAN ORDER) (03/13/2025) Anatomical Region Laterality Modality Other 03/13/2025 [facility] Scanned SCANNING Final Resu lt * (ABNORMAL) URINALYSIS (01/14/2025 7:19 AM CDT) COLOR (U) YELLOW 01/14/2025 4:04 PM CDT [facility] TRANSPARENCY CLEAR CLEAR 01/14/2025 4:04 PM CDT [facility] SPECIFIC GRAVITY (U) <1.005 1.003 - 1.040 01/14/2025 4:04 PM CDT [facility] U PH 7.0 5.0 - 9.0 01/14/2025 4:04 PM CDT [facility] PROTEIN RANDOM (U) NEGATIVE NEGATIVE 01/14/2025 4:04 PM CDT [facility] GLUCOSE (U) NEGATIVE NEGATIVE 01/14/2025 4:04 PM CDT [facility] KETONES MG/DL (U) NEGATIVE NEGATIVE 01/14/2025 4:04 PM CDT [facility] BILIRUBIN (U) NEGATIVE NEGATIVE 01/14/2025 4:04 PM CDT [facility] BLOOD (U) NEGATIVE NEGATIVE 01/14/2025 4:04 PM CDT [facility] UROBILINOGEN 0.2 0.0 - 2.0 EU/DL 01/14/2025 4:04 PM CDT [facility] NITRITES NEGATIVE NEGATIVE 01/14/2025 4:04 PM CDT [facility] LEUKOCYTES (U) NEGATIVE NEGATIVE 01/14/2025 4:04 PM CDT [facility] RBC/HPF 0-3 0 - 3 /HPF 01/14/2025 4:04 PM CDT [facility] WBC/HPF 0-3 0 - 3 /HPF 01/14/2025 4:04 PM CDT [facility] EPI/HPF 0-3 /HPF 01/14/2025 4:04 PM CDT [facility] BACTERIA (U) TRACE(A) NONE SEEN 01/14/2025 4:04 PM CDT [facility] URINE SPECIMEN OBTAINED BY CLEAN CATCH PROCEDURE / Unknown 01/14/2025 7:19 AM CDT us Ron Toledo MD URINE ORDERABLES Final Result [facility] [address] [place] [address], * (ABNORMAL) COMPREHENSIVE METABOLIC PANEL (01/14/2025 7:19 AM CDT) SODIUM S/P/B 142 136 - 145 MMOL/L 01/14/2025 3:43 PM CDT [facility] POTASSIUM S/P/B 4.0 3.5 - 5.1 MMOL/L 01/14/2025 3:43 PM CDT [facility] CHLORIDE S/P/B 103 98 - 107 MMOL/L 01/14/2025 3:43 PM CDT [facility] CO2 32.3(H) 21 - 32 MMOL/L 01/14/2025 3:45 PM CDT [facility] Comment:RESULTS CONFIRMED-TE ST REPEATED GLUCOSE 106(H) 70 - 99 MG/DL 01/14/2025 3:43 PM CDT [facility] BUN 13 7 - 18 MG/DL 01/14/2025 3:43 PM CDT [facility] CREATININE S/P/B 0.82 0.55 - 1.02 MG/DL 01/14/2025 3:43 PM [facility] CALCIUM S/P/B 9.8 8.4 - 10.5 MG/DL 01/14/2025 3:43 PM CDT [facility] BILIRUBIN TOTAL S/P/B 0.4 0.2 - 1.0 MG/DL 01/14/2025 3:43 PM [facility] ALKALINE PHOSPHATASE S/P/B 76 50 - 130 U/L 01/14/2025 3:43 PM [facility] AST 19 15 - 37 U/L 01/14/2025 3:43 PM CDT [facility] ALT 36 14 - 59 U/L 01/14/2025 3:43 PM [facility] TOTAL PROTEIN S/P/B 7.3 6.4 - 8.2 G/DL 01/14/2025 3:43 PM [facility] ALBUMIN S/P/B 4.1 3.4 - 5.0 G/DL 01/14/2025 3:43 PM [facility] ANION GAP 6.7 5 - 15 MMOL/L 01/14/2025 3:45 PM CDT [facility] Comment:REFERENCE RANGE NOT ESTABLISHED OSMOLALITY (CALC) 295 MOSM/KG 025 3:43 PM [facility] Comment:REFERENCE RANGE NOT ESTABLISHED GFR ESTIMATE 80(L) >90 ML/MIN/1. 73 M2 01/14/2025 3:43 PM [facility] GFR NOTES GFR REFERENCE S: 01/14/2025 3:43 PM CDT [facility] Comment: THE ESTIMATED GFR IS CALCULATED USING THE 2020 CKD-EPI EQUATION. THE FOLLOWING CATEGORIES FOR GRADING RENAL FUNCTION ARE RECOMMENDED BY THE INTERNATIONAL SOCIETY OF NEPHROLOGY (KDIGO 2012 CLINICAL PRACTICE GUIDELINE). G1,NORMAL OR HIGH: >89 ml/min/1.73 m2 G2,MILDLY DECREASED: 60-89 ml/min/1.73 m2 G3A,MILDLY TO MODERATELY DECREASED: 45-59 ml/min/1.73 m2 G3B,MODERATELY TO SEVERELY DECREASED: 30-44 ml/min/1.73 m2 G4,SEVERELY DECREASED: 15-29 ml/min/1.73 m2 G5,KIDNEY FAILURE: <15 ml/min/1.73 m2 01/14/2025 7:19 AM CDT us Ron Toledo MD LABORATORY Final Result [facility] [address] [place] [address], * LIPID PANEL (01/14/2025 7:19 AM CDT) CHOLESTEROL 123 <200 MG/DL 01/14/2025 3:43 PM CDT [facility] TRIGLYCERIDES 84 <150 MG/DL 01/14/2025 3:43 PM CDT [facility] HDL 52 >40 MG/DL 01/14/2025 3:43 PM CDT [facility] LDL-C 54 <100 MG/DL 01/14/2025 3:43 PM CDT [facility] VLDL CALCULATION 17 5 - 28 MG/DL 01/14/2025 3:43 PM CDT [facility] CHOL/HDL RATIO 2.4 0.0 - 4.0 01/14/2025 3:43 PM CDT [facility] LDL/HDL 1.0 0.41 - 2.13 01/14/2025 3:43 PM CDT [facility] NON HDL CHOLESTEROL 71 <140 MG/DL 01/14/2025 3:43 PM CDT [facility] 01/14/2025 7:19 AM CDT Ron Toledo MD LABORATORY Final Result [facility] [address] [place] [address], * (ABNORMAL) CBC W/DIFF AUTOMATED (01/14/2025 7:19 AM CDT) WBC 6.78 4.00 - 10.80 x10'3/uL 01/14/2025 2:48 PM CDT [facility] RBC 4.12 4.10 - 5.40 x10'6/uL 01/14/2025 2:48 PM CDT [facility] HGB 13.0 12.0 - 16.0 G/DL 01/14/2025 2:48 PM CDT [facility] HCT 39.5 36.0 - 47.0 % 01/14/2025 2:48 PM CDT [facility] MCV 95.9 78.0 - 100.0 FL 01/14/2025 2:48 PM CDT [facility] MCH 31.6(H) 27.0 - 31.0 PG 01/14/2025 2:48 PM CDT [facility] MCHC 32.9(L) 33.0 - 36.0 G/DL 01/14/2025 2:48 PM CDT [facility] RDW 12.9 11.5 - 14.5 % 01/14/2025 2:48 PM CDT [facility] PLT 255 150 - 350 x10'3/uL 01/14/2025 2:48 PM CDT [facility] MPV 9.5 7.4 - 10.4 FL 01/14/2025 2:48 PM CDT [facility] DIFFERENTIAL TYPE AUTOMATED DIFFERENTIAL 01/14/2025 2:48 PM CDT [facility] NEUTROPHILS % 43.3 % 01/14/2025 2:48 PM CDT [facility] LYMPHOCYTES % 38.5 % 01/14/2025 2:48 PM CDT [facility] MONOCYTES % 12.8 % 01/14/2025 2:48 PM CDT [facility] EOSINOPHILS % 5.0 % 01/14/2025 2:48 PM CDT [facility] BASOPHILS % 0.3 % 01/14/2025 2:48 PM CDT [facility] IMMATURE GRANS % 0.1 % 01/14/2025 2:48 PM CDT [facility] ABS. NEUTROPHILS 2.93 1.60 - 8.30 x10'3/uL 01/14/2025 2:48 PM CDT [facility] ABS. LYMPHOCYTES 2.61 0.80 - 4.70 x10'3/uL 01/14/2025 2:48 PM CDT [facility] ABS. MONOCYTES 0.87 0.00 - 1.50 x10'3/uL 01/14/2025 2:48 PM CDT [facility] ABS. EOSINOPHILS 0.34 0.00 - 0.40 x10'3/uL 01/14/2025 2:48 PM CDT [facility] ABS. BASOPHILS 0.02 0.00 - 0.20 x10'3/uL 01/14/2025 2:48 PM CDT [facility] ABS. IMMATURE GRANULOCYTES 0.01 0.00 - 0.03 x10'3/uL 01/14/2025 2:48 PM CDT [facility] 01/14/2025 7:19 AM CDT us Ron Toledo MD LABORATORY Final Result Performing Organization Address [facility] de Phone Number [facility] [address] [place] [address], * VITAMIN D, 25 OH (01/14/2025 7:19 AM CDT) Pathologist [facility] VITAMIN D 25 HYDROXY TOTAL S/P/B 70.9 30 - 100 NG/ML 01/14/2025 3:43 PM CDT [facility] Comment: DEFICIENT <20 INSUFFICIENT 20-30 SUFFICIENT 30-100 01/14/2025 7:19 AM CDT us Ron Toledo MD LABORATORY Final Result Performing Organization Address [facility] de Phone Number [address] [address], * CK (CPK) (01/14/2025 7:19 AM CDT) Pathologist [facility] CPK 74 26 - 192 U/L 01/14/2025 6:07 PM CDT [facility] 01/14/2025 7:19 AM CDT us Ron Toledo MD LABORATORY Final Result Performing Organization Address [facility] de Phone Number [facility] [address] [place] [address], [place] [phone] * HEPATITIS C ANTIBODY (01/02/2024 7:54 AM CDT) Pathologist [facility] HEPATITIS C AB NON-REACTI VE NON-REACT GERTRUDIS 01/02/2024 6:30 PM CDT [facility] Comment: ANTIBODIES TO HCV NOT DETECTED. DOES NOT EXCLUDE THE POSSIBILITY OF EXPOSURE TO HCV. 01/02/2024 7:54 AM CDT Ron Toledo MD LABORATORY Final Result [facility] [address] [place] [address], [phone] * COLONOSCOPY GENERIC (05/07/2023) 05/07/2023 [facility] Scanned SCANNING Final Resu lt from Last 3 Months or Most Recently Relevant to Health Maintenance Insurance [facility] Care Teams Scrap Hooker Relationship Specialty Start Date End Date Ron Toledo MD [address] [place] [address] PCP - General 08/23/15 Augustin David MD Three [facility] [address] [place] [address] [employer] CARDIOVASCULAR DISEASE 04/23/18
[2025-04-08 08:04] VITALS: BP 119/73; PULSE 73; RESP 16; TEMP 36.8; O2SAT 92; BMI 26.6
[2025-04-08 08:50] VITALS: BP 118/58; PULSE 63; RESP 22; O2SAT 100
--- NOTE | 2025-04-08 08:57 | WPDCARDPROC ---
Cardiac Cath Procedure Note Date of procedure:: 04/08/25 Performing physician:: Atul Garcia MD Indication:: Recurrent syncope Brief clinical history:: This is a 64-year-old woman with recurrent unexplained syncope who is scheduled for loop recorder implant by her physician. Procedure Procedure performed:: Implantation of Medtronic LINQ loop recorder Sedation/Medication given:: No sedation Access site:: Left anterior chest wall Estimated blood loss:: Minimal Procedure note:: Patient was brought to the cardiac catheterization lab holding area in the postabsorptive state where the left anterior chest wall was exposed. The area was prepped and draped in sterile fashion. The 4th intercostal space in the midclavicular line was identified and 20 cc of lidocaine was infiltrated for local anesthesia. Following that the insertion tool for the Medtronic LINQ loop recorder was open. The puncture tool was used to make a stab wound at the marked site for implantation. The insertion tool was then used to create a tract inferior to the puncture wound. The insertion tool was then used to insert and deployed the loop recorder in the tract and was removed. There was a small amount of skin losing occurring in this was controlled with direct manual compression. Following this a drop a bio glue and a bandage was placed over the area. Findings:: Patient received a Medtronic LINQ2 loop recorder model LNQ22 serial number [id number] R-waves were sensed at 0.42 mV. Conclusion:: Successful uncomplicated implantation of Medtronic LINQ 2 loop recorder for evaluation of recurrent syncope in this 64-year-old lady. Atul Garcia MD [facility]
== END 2025-04-08 09:23 | disposition home or self-care (01) ==
PROVIDERS: PCP Internal Medicine; Visit Provider Specialist
PROC: (CPT 33285; principal; 2025-04-08 08:30)
DX: R55 Syncope and collapse (principal); I25.10 Atherosclerotic heart disease of native coronary artery without angina pectoris; E78.5 Hyperlipidemia, unspecified; I10 Essential (primary) hypertension; G47.10 Hypersomnia, unspecified; I36.1 Nonrheumatic tricuspid (valve) insufficiency; Z79.82 Long term (current) use of aspirin; Z90.2 Acquired absence of lung [part of]; Z87.891 Personal history of nicotine dependence; Z85.118 Personal history of other malignant neoplasm of bronchus and lung; Z80.9 Family history of malignant neoplasm, unspecified; Z82.49 Family history of ischemic heart disease and other diseases of the circulatory system
CPT/HCPCS: 33285; C1764; J2003